=== PATIENT | male | born 1955 | race Caucasian/White ===

== ENCOUNTER → 2016-10-28 | Outpatient (CLI) | payer BC ==
[~2016-10-28] MED LIST: SIMV10TA2 PO
== END | disposition home or self-care (01) ==
LOC: C.PATHSPEC 11:34
PROVIDERS: ATTEND Urology
DX: N40.2 Nodular prostate without lower urinary tract symptoms (principal)

== ENCOUNTER → 2016-11-10 | Outpatient (CLI) | payer BC ==
--- NOTE | 2016-11-10 16:06 | DIAGNOSTIC IMAGING REPORT ---
BONE SCAN WHOLE BODY CLINICAL HISTORY: Prostate carcinoma COMPARISON STUDY: No previous studies for comparison. FINDINGS: The patient was injected with 27.5 mCi of technetium 99m MDP. Three-hour delayed whole body images were acquired. There are foci of minimal increased activity within the shoulders and knees, consistent with degenerative change. There are no areas of increased activity viewed as suspicious for metastatic disease. IMPRESSION: No scintigraphic evidence of skeletal metastasis. Electronically signed by: Gurdeep Cruz M.D. 11/10/2016 4:05 PM Dictated Date/Time: 11/10/2016 4:02 PM
== END | disposition home or self-care (01) ==
LOC: C.NUCL 11:46
PROVIDERS: ATTEND Urology
DX: C61 Malignant neoplasm of prostate (principal)